=== PATIENT | female | born 1975 | race Caucasian/White ===

== ENCOUNTER 2018-11-11 10:42 | Emergency (ER) | payer MEDICAID, OTHER ==
[~2018-11-11] VITALS: Ht 154.9 cm; Wt 73.2 kg
[2018-11-11 10:44] VITALS: Ht 154.9 cm; Wt 73.2 kg
[2018-11-11] MEDS ORDERED: IBUPROFEN 800 MG TAB PO ONE (12:00)
[2018-11-11] MEDS ORDERED: HYDROCODONE/APAP (10/325) TAB PO ONE (12:00)
[2018-11-11] MEDS ORDERED: CYCL10TA7 PO (12:34)
[2018-11-11] MEDS ORDERED: IBUP800T48 PO (12:34)
[2018-11-11] MEDS ORDERED: CYCLOBENZAPRINE 10 MG TAB PO ONE ×2 (12:35→13:00)
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
[2018-11-11 13:00] VITALS: BP 117/69; PULSE 59; RESP 16
== END 2018-11-11 12:45 | disposition home or self-care (01) ==
LOC: E/R 10:42
DX: S20.212A Contusion of left front wall of thorax, initial encounter (principal); S13.4XXA Sprain of ligaments of cervical spine, initial encounter; V49.50XA Passenger injured in collision with unspecified motor vehicles in traffic accident, initial encounter
CPT/HCPCS: 71250; 72040; 81025; Z7610